=== PATIENT | male | born 1985 | race Caucasian/White ===

== ENCOUNTER 2019-04-18 12:00 | Emergency (ER) | payer OTHER ==
[2019-04-18 12:26] VITALS: RESP 16; TEMP 98
[2019-04-18 13:07] VITALS: BP 127/78; PULSE 76; O2SAT 97
== END 2019-04-18 12:48 | disposition home or self-care (01) | DRG 206 ==
LOC: ED 12:00
DX: J70.5 Respiratory conditions due to smoke inhalation (principal); X08.8XXA Exposure to other specified smoke, fire and flames, initial encounter
CPT/HCPCS: 99282; 99283